=== PATIENT | male | born 1960 | race Caucasian/White ===

== ENCOUNTER 2024-07-03 07:46 | Inpatient (IN) | payer MEDICARE ==
[~2024-07-03] VITALS: Ht 177.8 cm; Wt 86.9 kg
[2024-07-03] MEDS ORDERED: CLARITIN10 MG PO (09:38)
[2024-07-03] MEDS ORDERED: TRAZODONE100 MG PO (09:40)
[2024-07-03] MEDS ORDERED: SEROQUEL100 MG PO (09:41)
[2024-07-03] MEDS ORDERED: TYLENOL325 M2 PO (09:42)
[2024-07-03] MEDS ORDERED: hydrOXYzine hydrochloride 50 MG/ML VIAL IM PRN (09:45)
[2024-07-03] MEDS ORDERED: LORazepam 1 MG TAB PO PRN (09:45)
[2024-07-03] MEDS ORDERED: ZYPREXA5 M1 PO (09:47)
[2024-07-03] MEDS ORDERED: Ziprasidone Mesylate 20 MG VIAL IM PRN (09:52)
[2024-07-03] MEDS ORDERED: carBAMazepine 100 MG TAB PO SCH (13:00)
[2024-07-03] MEDS ORDERED: QUETIAPINE FUM100 M3 PO (19:42)
[2024-07-03] MEDS ORDERED: QUETIAPINE FUMA25 MG PO (19:45)
[2024-07-03] MEDS ORDERED: QUEtiapine FUMARATE 100 MG TAB PO SCH (21:00)
[2024-07-03] MEDS ORDERED: Memantine Hydrochloride 5 MG TAB PO SCH (22:00)
[2024-07-04 01:00] VITALS: BP 128/87
[2024-07-04] MEDS ORDERED: Rivastigmine Tartrate 4.6 MG/24 HR PATCH T SCH (09:00)
[2024-07-04] MEDS ORDERED: carBAMazepine 100 MG TAB PO SCH (09:06)
[2024-07-04] MEDS ORDERED: Memantine Hydrochloride 5 MG TAB PO SCH (21:00)
[2024-07-05 07:49] VITALS: BP 105/61
[2024-07-05 10:37] LABS: ALKALINE PHOSPHATASE 58 U/L (46-116); BUN 11 mg/dl (9-23); CHLORIDE 107 mmol/L (98-107); POTASSIUM 3.7 mmol/L (3.4-5.1); SGPT/ALT 9 U/L (5-49); TOTAL PROTEIN 6.7 gm/dL (6.0-8.0)
[2024-07-05 10:51] LABS: VITAMIN D, 25-HYDROXY 12.8 ng/mL (30-100)
[2024-07-05] MEDS ORDERED: CYANOCOBALAMIN 1,000 MCG/ML VIAL IM SCH (11:45)
[2024-07-05 12:11] LABS: BASO # 0.1 10*3/uL (0.0-0.1); BASO % 1.1 % (0.0-1.0); EOS # 0.2 10*3/uL (0.0-0.4); EOS % 2.9 % (1.0-4.0); HEMATOCRIT 41.2 % (42.0-52.0); MEAN CELL VOLUME 97.9 fl (80.0-94.0); MEAN CORPUSCULAR HGB 31.8 pg (27.0-31.0); MEAN CORPUSCULAR HGB CONC 32.5 g/dl (33.0-37.0); MEAN PLATELET VOLUME 11.4 fl (9.6-12.3); MONO # 0.6 10*3/uL (0.1-1.0); MONO % 11.5 % (3.0-9.0); NEUT # 3.1 10*3/uL (2.3-7.9); NEUT % 57.3 % (47.0-73.0); PLATELET COUNT AUTOMATED 179 10*3/uL (130-400); RED BLOOD COUNT 4.21 10*6/uL (4.50-5.90); RED CELL DISTRI WIDTH 13.2 % (0-14.5); WHITE BLOOD COUNT 5.5 10*3/uL (4.8-10.8)
[2024-07-06 08:00] VITALS: BP 113/69
[2024-07-06] MEDS ORDERED: Rivastigmine Tartrate 9.5 MG/24 HR PATCH T SCH (09:00)
[2024-07-06] MEDS ORDERED: carBAMazepine 200 MG TAB PO SCH (09:00)
[2024-07-06] MEDS ORDERED: Memantine Hydrochloride 10 MG TAB PO SCH (09:00)
[2024-07-06] MEDS ORDERED: RIVASTIGMINE 13.3 MG/24 HR TDM T SCH (09:00)
[2024-07-06] MEDS ORDERED: Cholecalciferol 5,000 IU CAP (125 MCG) PO SCH (10:00)
[2024-07-06 20:00] VITALS: BP 123/81
[2024-07-07 07:32] VITALS: BP 100/60
[2024-07-07] MEDS ORDERED: FUROSEMIDE 40 MG TAB PO SCH (12:00)
[2024-07-07] MEDS ORDERED: carBAMazepine 200 MG TAB PO SCH (13:00)
[2024-07-07 20:00] VITALS: BP 147/89
[2024-07-08 07:37] VITALS: BP 129/66
[2024-07-08] MEDS ORDERED: carBAMazepine 200 MG TAB PO SCH (13:00)
[2024-07-08 20:00] VITALS: BP 133/73
[2024-07-08] MEDS ORDERED: QUEtiapine FUMARATE 50 MG TAB PO SCH (21:00)
[2024-07-09 08:00] VITALS: BP 124/70
[2024-07-09 20:00] VITALS: BP 109/92
[2024-07-10 08:00] VITALS: BP 132/80
[2024-07-10] MEDS ORDERED: carBAMazepine 200 MG TAB PO SCH (13:00)
[2024-07-10 20:00] VITALS: BP 124/88
[2024-07-10] MEDS ORDERED: hydrOXYzine pamoate 25 MG CAP PO SCH (21:00)
[2024-07-11 06:33] LABS: BASO # 0.1 10*3/uL (0.0-0.1); BASO % 1.2 % (0.0-1.0); EOS # 0.2 10*3/uL (0.0-0.4); EOS % 2.3 % (1.0-4.0); HEMATOCRIT 43.3 % (42.0-52.0); MEAN CELL VOLUME 97.5 fl (80.0-94.0); MEAN CORPUSCULAR HGB CONC 32.8 g/dl (33.0-37.0); MEAN PLATELET VOLUME 11.5 fl (9.6-12.3); MONO # 0.9 10*3/uL (0.1-1.0); MONO % 11.4 % (3.0-9.0); NEUT # 4.2 10*3/uL (2.3-7.9); NEUT % 53.7 % (47.0-73.0); PLATELET COUNT AUTOMATED 180 10*3/uL (130-400); RED BLOOD COUNT 4.44 10*6/uL (4.50-5.90); RED CELL DISTRI WIDTH 13.1 % (0-14.5); WHITE BLOOD COUNT 7.8 10*3/uL (4.8-10.8)
[2024-07-11 06:43] LABS: ALKALINE PHOSPHATASE 65 U/L (46-116); BUN 17 mg/dl (9-23); CARBAMAZEPINE (TEGRETOL) TOTAL 7.7 ug/ml (4-12); CHLORIDE 103 mmol/L (98-107); POTASSIUM 3.7 mmol/L (3.4-5.1); SGPT/ALT 11 U/L (5-49); TOTAL PROTEIN 6.9 gm/dL (6.0-8.0)
[2024-07-11 07:53] VITALS: BP 125/62
[2024-07-11 20:00] VITALS: BP 124/72
[2024-07-12 08:00] VITALS: BP 121/64
[2024-07-12 20:00] VITALS: BP 143/85
[2024-07-13 08:00] VITALS: BP 120/69
[2024-07-13 20:00] VITALS: BP 125/71
[2024-07-14 06:03] LABS: BUN 20 mg/dl (9-23); CHLORIDE 99 mmol/L (98-107); POTASSIUM 4.1 mmol/L (3.4-5.1)
[2024-07-14 06:04] LABS: ALKALINE PHOSPHATASE 74 U/L (46-116); BUN 20 mg/dl (9-23); CHLORIDE 99 mmol/L (98-107); SGPT/ALT 14 U/L (5-49); TOTAL PROTEIN 8.1 gm/dL (6.0-8.0)
[2024-07-14 06:12] LABS: BASO # 0.1 10*3/uL (0.0-0.1); BASO % 1.3 % (0.0-1.0); EOS # 0.2 10*3/uL (0.0-0.4); EOS % 1.6 % (1.0-4.0); HEMATOCRIT 48.4 % (42.0-52.0); MEAN CELL VOLUME 96.8 fl (80.0-94.0); MEAN CORPUSCULAR HGB CONC 33.1 g/dl (33.0-37.0); MEAN PLATELET VOLUME 11.4 fl (9.6-12.3); MONO # 0.9 10*3/uL (0.1-1.0); MONO % 9.7 % (3.0-9.0); NEUT # 5.3 10*3/uL (2.3-7.9); NEUT % 56.2 % (47.0-73.0); PLATELET COUNT AUTOMATED 189 10*3/uL (130-400); RED CELL DISTRI WIDTH 12.9 % (0-14.5); WHITE BLOOD COUNT 9.4 10*3/uL (4.8-10.8)
[2024-07-14 08:23] VITALS: BP 138/84
[2024-07-14 20:00] VITALS: BP 141/78
[2024-07-14] MEDS ORDERED: RAMELTEON 8 MG TAB PO SCH (21:00)
[2024-07-15 08:00] VITALS: BP 121/81
[2024-07-15 20:00] VITALS: BP 109/62
[2024-07-16] MEDS ORDERED: CARBAMAZEPINE200 MG PO (08:48)
[2024-07-16] MEDS ORDERED: HYDROXYZINE PAM25 M1 PO (08:48)
[2024-07-16] MEDS ORDERED: B121000 MCG/1 IM (08:48)
[2024-07-16] MEDS ORDERED: MEMANTINE HCL10 MG PO (08:48)
[2024-07-16] MEDS ORDERED: RIVASTIGMINE1 EAC2 T (08:48)
[2024-07-16] MEDS ORDERED: RAMELTEON8 MG PO (08:48)
[2024-07-16] MEDS ORDERED: VITAMIN D3125 MC1 PO (08:48)
[2024-07-16 08:54] VITALS: BP 113/66
[2024-07-17] MEDS ORDERED: B121000 MCG/2 IM (14:02)
== END 2024-07-16 13:07 | DRG 883 ==
LOC: 3N
PROVIDERS: Counselor Professional; Internal Medicine; ADMIT Psychiatry & Neurology Psychiatry; ATTEND Psychiatry & Neurology Psychiatry
PROC: GZHZZZZ Group Psychotherapy (ICD-10-PCS; principal; 2024-07-13)
PROC: GZ51ZZZ Individual Psychotherapy, Behavioral (ICD-10-PCS; 2024-07-13)
DX: F63.81 Intermittent explosive disorder (principal); D53.9 Nutritional anemia, unspecified; G31.09 Other frontotemporal neurocognitive disorder; G30.0 Alzheimer's disease with early onset; E80.6 Other disorders of bilirubin metabolism; J30.2 Other seasonal allergic rhinitis; F02.80 Dementia in other diseases classified elsewhere, unspecified severity, without behavioral disturbance, psychotic disturbance, mood disturbance, and anxiety; R00.0 Tachycardia, unspecified; Z79.899 Other long term (current) drug therapy